=== PATIENT | female | born 1990 | race American Indian/Alaskan Native ===

== ENCOUNTER 2020-05-10 19:51 | Emergency (ER) | payer OTHER ==
[2020-05-10] MEDS ORDERED: SODIUM CHLORIDE 0.9% 1000 ML 1,000 ML ONE (21:21)
[2020-05-10] MEDS ORDERED: SODIUM CHLORIDE 0.9% 1000 ML 1,000 ML IV ONE (21:40)
[2020-05-10 22:12] LABS: Basophils # (Auto) 0.1 K/mm3 (0.0-0.1); Basophils % (Auto) 1.2 % (0.0-1.8); Eosinophils % (Auto) 0.1 % (0.0-4.3); Hematocrit 39.5 % (30.3-42.9); Hemoglobin 12.4 gm/dl (10.1-14.3); Lymphocytes # (Auto) 1.7 K/mm3 (1.2-5.4); Mean Corpuscular HGB Conc 31 % (30-34); Mean Corpuscular Volume 99 fl (79-97); Monocytes # (Auto) 0.8 K/mm3 (0.0-0.8); Monocytes % (Auto) 8.7 % (0.0-7.3); Platelet Count 322 K/mm3 (140-440); Red Blood Count 4.01 M/mm3 (3.65-5.03); Red Cell Distribution Width 16.6 % (13.2-15.2)
[2020-05-10] MEDS ORDERED: FAMOTIDINE 20 MG/2 ML INJ IV ONE (22:22)
[2020-05-10] MEDS ORDERED: ONDANSETRON 4 MG/2 ML INJ IV ONE (22:22)
[2020-05-10 22:29] LABS: Alanine Aminotransferase 15 units/L (7-56); Albumin 4.6 g/dL (3.9-5); Blood Urea Nitrogen 9 mg/dL (7-17); Calcium 8.2 mg/dL (8.4-10.2); Hemolysis Index 22
[2020-05-10 22:44] LABS: BUN/Creatinine Ratio 13
[2020-05-11 00:03] LABS: Bilirubin,Urine NEG (Negative); Blood,Urine NEG (Negative); Color,Urine Yellow (Yellow); Hyaline Casts,Urine 1 /LPF; Mucus,Urine FEW /HPF; Urobilinogen,Urine < 2.0 mg/dL (<2.0)
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
[2020-05-11] MEDS ORDERED: KETOROLAC 30 MG/1 ML INJ IV ONE (01:44)
[2020-05-11 05:33] VITALS: BP 133/75
== END 2020-05-11 02:15 | disposition home or self-care (01) ==
LOC: ED 19:51
DX: K21.9 Gastro-esophageal reflux disease without esophagitis (principal); R11.2 Nausea with vomiting, unspecified; Z79.899 Other long term (current) drug therapy
CPT/HCPCS: 36415; 80053; 81001; 84703; 85025; 96361; 96374; 96375; 99284; J1885; J2405; J7030